=== PATIENT | male | born 1935 | race Caucasian/White ===

== ENCOUNTER 2020-01-11 14:28 | Emergency (ER) | payer MEDICARE, OTHER ==
--- NOTE | 2020-01-11 15:30 | ER Document Report ---
ED General - General Chief Complaint: Passed Out Prior to Arrival Stated Complaint: DIZZY/SYNCOPE Time Seen by Provider: 01/11/20 15:30 Primary Care Provider: EDDIE KIRBY MD [Primary Care Provider] - Follow up as needed - [facility] Notes: 84-year-old male presents after a syncopal event home. 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 He states that he went into the house to fix lunch, he states that he came back out to the garage to let them know that the pizza was ready, passed out and the next thing he knew EMS was at his house. Patient states that he only had a pop tart for breakfast around 11 AM, he took a few bites of the pizza but did not eat a whole slice. He states that he thinks he just got worn out while supervising the garage door repair, he states "I'm pretty good now". Patient's daughter is at bedside, she received a call from her brother/patient's son. She states that she was told "dad was having an episode". She reports that he has had episodes in the past where his blood sugar goes low secondary to not eating, he will become "out of it", they feed him and his symptoms improve. She also states she was told that patient was bent over, grabbing his abdomen and gagging during this episode. Per nursing report, patient was 84/50 on EMS arrival, he received 750cc normal saline and was witnessed to have an episode of coffee-ground emesis. Patient denies known history of ulcers, he has never had an endoscopy, it is been probably 10 years since his last colonoscopy. He takes a thyroid medication and vitamins for anemia. He is not on any blood thinners, he denies use of NSAIDs, denies alcohol use, denies use of aspirin/BC powder. He has had abdominal surgery, though he is unsure what happened. He states that his stools are typically dark and this is normal for him, he has never seen any blood in his stool. - Related Data Allergies/Adverse Reactions: Penicillins Allergy (Verified 01/11/20 14:55) Past Medical History - General Information source: Patient, Relative - Social History Smoking Status: Former Smoker Family History: Reviewed & Not Pertinent - Past Medical History Cardiac Medical History: Denies: Hx Heart Attack, Hx Hypertension Pulmonary Medical History: Denies: Hx Asthma Neurological Medical History: Denies: Hx Cerebrovascular Accident, Hx Seizures GI Medical History: Denies: Hx Hepatitis, Hx Hiatal Hernia, Hx Ulcer Infectious Medical History: Denies: Hx Hepatitis Past Surgical History: Denies: Hx Open Heart Surgery, Hx Pacemaker Review of Systems - Review of Systems Constitutional: denies: Fever EENT: No symptoms reported Cardiovascular: denies: Chest pain Respiratory: denies: Short of breath Gastrointestinal: Vomiting. denies: Abdominal pain Genitourinary: No symptoms reported Male Genitourinary: No symptoms reported Musculoskeletal: No symptoms reported Skin: No symptoms reported Hematologic/Lymphatic: No symptoms reported Neurological/Psychological: No symptoms reported Physical Exam - Vital signs Vitals: Resp BP Pulse Ox 20 161/103 H 93 01/11/20 14:35 01/11/20 14:35 01/11/20 14:35 - General General appearance: Appears well, Alert In distress: None - HEENT Head: Normocephalic, Atraumatic Eyes: No: Scleral icterus Extraocular movements intact: Yes Pupils: PERRL Mucous membranes: Moist Notes: Dried brown emesis on brown, positive Hemoccult - Respiratory Breath sounds: Normal - Cardiovascular Rhythm: Regular Heart sounds: Normal auscultation Normal capillary refill: Yes - Abdominal Distension: No distension Bowel sounds: Normal Tenderness: Nontender Notes: Midline surgical scar, well-healed and old appearing - Rectal Stool: Heme positive - Faintly positive brown stool. No: Black, Bloody - Extremities General upper extremity: Normal ROM General lower extremity: Normal ROM. No: Edema - Neurological Neuro grossly intact: Yes Cognition: Normal Orientation: AAOx4 - Psychological Associated symptoms: Normal affect - Skin Skin Temperature: Warm Course - Re-evaluation Re-evalutation: 84-year-old male presents via EMS after syncopal event at home. Initially found to be hypotensive with EMS, received a fluid bolus, current blood pressure 150/90, not tachycardic. On exam he is well-appearing, hemodynamically stable, abdomen is soft, lungs are clear, heart RRR, normal cap refill. He did have dried emesis on his brown, this was Hemoccult positive. His stool was checked, very faintly Hemoccult positive on periphery of card, brown stool. Based on this report of coffee-ground emesis, I am concerned that patient might be experiencing UGIB, no known history of ulcers, does not take any anticoagulant/antiplatelet medications, will trend hemoglobin and give dose of Protonix. He has obviously had an ex lap given his midline surgical scar, his abdomen has no focal tenderness, however will obtain CT abdomen to evaluate for early obstructive process or any mass that could be attributing to his symptoms. Does not currently voice any cardiopulmonary complaints. 01/11/20 18:38 Repeat hemoglobin without significant drop, 11.8 to 11.4 01/11/20 19:33 CT abdomen report available. Per radiology, no evidence of bowel obstruction. There is some thickening of the ascending colon which may be due to underdistention or colitis. Does have diverticulosis. Additionally has 1.8 cm hypodense lesion in the right hepatic lobe with recommendations to have outpatient MRI 01/11/20 19:41 In to update patient and daughter on all results and relatively reassuring work- up. Patient has remained hemodynamically stable, actually hypertensive on the hypertensive side. He states since he has been in the emergency department he has had no complaints whatsoever. I offered patient admission for trending of hemoglobins. He declined admission, stating he would like to go home. His daughter at bedside is comfortable with him going home as well. I discussed with him need to have very close follow-up with his primary care doctor and receive referral to GI, discuss starting daily acid suppressive medication. Patient is alert and oriented and has capacity to make decisions. Additionally daughter at bedside says they are "very in tune with his health" and will come back to the emergency department for any concerning symptoms or if episode of vomiting happens again. Patient was given strict return precautions which he and his daughter verbalized understanding. Stable at time of discharge. - Vital Signs Vital signs: Temp Pulse Resp BP Pulse Ox 97.6 F 13 178/95 H 100 01/11/20 15:05 01/11/20 16:31 01/11/20 16:31 01/11/20 16:31 - Laboratory Result Diagrams: 01/11/20 18:07 01/11/20 14:44 Laboratory results interpreted by me: 01/11/20 01/11/20 01/11/20 14:44 14:44 18:07 Hgb 11.8 L 11.4 L Hct 36.2 L 33.6 L MCV 78 L 76 L MCH 25.4 L 25.9 L RDW 19.1 H 18.4 H Seg Neutrophils % 79.6 H Sodium 133.7 L Chloride 97 L Glucose 143 H - Diagnostic Test Radiology reviewed: Image reviewed, Reports reviewed - EKG Interpretation by Me Additional EKG results interpreted by me: EKG as interpreted by me. There appears to be a sinus rhythm, I do appreciate P waves but there is a poor baseline in multiple leads, rate 79. Narrow QRS, QTC within normal limits. There is a PVC. No gross ST segment elevation or depression. Discharge - Discharge Clinical Impression: Vomiting Qualifiers: Vomiting type: unspecified Vomiting Intractability: non-intractable Nausea presence: without nausea Qualified Code(s): R11.11 - Vomiting without nausea Disposition: HOME, SELF-CARE Additional Instructions: Please begin daily use of acid reducing medication, have provided a prescription for Protonix however you may start with [id number] medications such as Nexium or Prilosec. Please return to the emergency department immediately for any concerning or worsening symptoms. Please call your primary care doctor on Monday to discuss follow-up and referral to GI, additionally discuss outpatient MRI for the small liver nodule that was seen on CT today. Prescriptions: Pantoprazole Sodium [Protonix [address] Tablet] 20 mg PO DAILY #30 tablet. Referrals: EDDIE KIRBY MD [Primary Care Provider] - Follow up as needed FLACA MAZA MD [ACTIVE STAFF] - Follow up as needed
[2020-01-11 15:46] LABS: ABSOLUTE EOSINOPHILS # (AUTO) 0.1 10^3/uL (0.0-0.6); ABSOLUTE LYMPHOCYTES (AUTO) 2.2 10^3/uL (0.5-4.7); ABSOLUTE MONOCYTES (AUTO) 0.5 10^3/uL (0.1-1.4); ABSOLUTE NEUT (AUTO) 3.8 10^3/uL (1.7-8.2); BASOPHILS % (AUTO) 0.5 % (0-2); HEMATOCRIT 36.2 % (37.9-51.0); HEMOGLOBIN 11.8 g/dL (13.5-17.0); LYMPHOCYTES % (AUTO) 33.5 % (13-45); MEAN CORPUSCULAR HEMOGLOBIN 25.4 pg (27.0-33.4); MEAN CORPUSCULAR HGB CONC 32.7 g/dL (32.0-36.0); MEAN CORPUSCULAR VOLUME 78 fl (80-97); MONOCYTES % (AUTO) 7.1 % (3-13); PLATELET COUNT 232 10^3/uL (150-450); RED BLOOD COUNT 4.66 10^6/uL (4.35-5.55); RED CELL DISTRIBUTION WIDTH 19.1 % (11.5-14.0); SEGMENTED NEUTROPHILS % (AUTO) 56.9 % (42-78); TOTAL CELLS COUNTED % (AUTO) 100 %; WHITE BLOOD COUNT 6.6 10^3/uL (4.0-10.5)
[2020-01-11 15:47] LABS: ALBUMIN 3.6 g/dL (3.5-5.0); ALKALINE PHOSPHATASE 95 U/L (38-126); ANION GAP 11 (5-19); ASPARTATE AMINO TRANSFERASE 23 U/L (17-59); BILIRUBIN,DIRECT 0.2 mg/dL (0.0-0.4); BILIRUBIN,TOTAL 0.7 mg/dL (0.2-1.3); BLOOD UREA NITROGEN 10 mg/dL (7-20); CALCIUM 9.2 mg/dL (8.4-10.2); CARBON DIOXIDE 26 mmol/L (22-30); CHLORIDE 97 mmol/L (98-107); GLUCOSE 143 mg/dL (75-110); POTASSIUM 4.1 mmol/L (3.6-5.0); TOTAL PROTEIN 6.5 g/dL (6.3-8.2)
[2020-01-11] MEDS ORDERED: PANTOPRAZOLE SODIUM 40 MG VIAL IV ONE (15:50)
[2020-01-11 17:37] LABS: APPEARANCE,URINE CLEAR; BILIRUBIN,URINE NEGATIVE (NEGATIVE); COLOR,URINE YELLOW; GLUCOSE, URINE NEGATIVE (NEGATIVE); KETONES,URINE NEGATIVE (NEGATIVE); LEUKOCYTE ESTERASE,URINE NEGATIVE (NEGATIVE); NITRITE,URINE NEGATIVE (NEGATIVE); PROTEIN,URINE NEGATIVE (NEGATIVE); URINE SPECIFIC GRAVITY 1.008; UROBILINOGEN,URINE NEGATIVE mg/dL (<2.0)
[2020-01-11 18:30] LABS: ABSOLUTE LYMPHOCYTES (AUTO) 1.2 10^3/uL (0.5-4.7); ABSOLUTE MONOCYTES (AUTO) 0.5 10^3/uL (0.1-1.4); ABSOLUTE NEUT (AUTO) 6.7 10^3/uL (1.7-8.2); BASOPHILS % (AUTO) 0.3 % (0-2); EOSINOPHILS % (AUTO) 0.3 % (0-6); HEMATOCRIT 33.6 % (37.9-51.0); HEMOGLOBIN 11.4 g/dL (13.5-17.0); LYMPHOCYTES % (AUTO) 13.8 % (13-45); MEAN CORPUSCULAR HEMOGLOBIN 25.9 pg (27.0-33.4); MEAN CORPUSCULAR HGB CONC 33.9 g/dL (32.0-36.0); MEAN CORPUSCULAR VOLUME 76 fl (80-97); PLATELET COUNT 219 10^3/uL (150-450); RED BLOOD COUNT 4.41 10^6/uL (4.35-5.55); RED CELL DISTRIBUTION WIDTH 18.4 % (11.5-14.0); SEGMENTED NEUTROPHILS % (AUTO) 79.6 % (42-78); TOTAL CELLS COUNTED % (AUTO) 100 %; WHITE BLOOD COUNT 8.4 10^3/uL (4.0-10.5)
--- NOTE | 2020-01-11 19:11 | RADIOLOGY REPORT (SQ) ---
EXAM DESCRIPTION: CT ABD/PELVIS WITH IV ORAL IMAGES COMPLETED DATE/TIME: 01/11/2020 6:42 pm REASON FOR STUDY: vomiting, hx abd surg, eval SBO COMPARISON: None. TECHNIQUE: CT scan of the abdomen and pelvis performed using helical scanning technique with dynamic intravenous contrast injection. Oral contrast was also administered. Images reviewed with lung, sof t tissue, and bone windows. Reconstructed coronal and sagittal MPR images reviewed. Delayed images fo r evaluation of the urinary system also acquired. All images stored on PACS. All CT scanners at this facility use dose modulation, iterative reconstruction, and/or weight based d osing when appropriate to reduce radiation dose to as low as reasonably achievable (ALARA). [facility]: Dose Right [facility]: CareDose [facility]: Dose Right [facility]: Teradose 4D [facility]: Tricentis CONTRAST TYPE AND DOSE: contrast/concentration: Isovue 350.00 mmol/ml; Total Contrast Delivered: 94. 0 ml; Total Saline Delivered: 71.0 ml RENAL FUNCTION: Creatinine 1.09 RADIATION DOSE: CT Rad equipment meets quality standard of care and radiation dose reduction techniq ues were employed. CTDIvol: 11.4 - 15.1 mGy. DLP: 1443 mGy-cm.. LIMITATIONS: Motion artifact. FINDINGS: LOWER CHEST: There is motion artifact. There is mild bibasilar atelectasis. No pleural e ffusion. Coronary artery calcifications/stents are noted. No pericardial effusion. There is a smal l hiatal hernia. LIVER: There is a 1.8 cm hypodense lesion at the right hepatic lobe, segment 7, measuring in attenuat ion more than simple cyst. No dilated ducts. SPLEEN: No focal lesions. PANCREAS: No significant calcifications. No adjacent inflammation or peripancreatic fluid collections . Pancreatic duct not dilated. GALLBLADDER: No identified stones by CT criteria. No inflammatory changes to suggest cholecystitis. ADRENAL GLANDS: No significant masses or asymmetry. RIGHT KIDNEY AND URETER: No solid masses. No significant calcifications. No hydronephrosis or hyd roureter. LEFT KIDNEY AND URETER: No solid masses. No significant calcifications. No hydronephrosis or hydr oureter. AORTA AND VESSELS: Atherosclerotic calcifications at the tortuous abdominal aorta and its branches. No evidence for acute dissection. RETROPERITONEUM: No retroperitoneal adenopathy, hemorrhage or masses. BOWEL AND PERITONEAL CAVITY: The stomach is decompressed. No dilated bowel loops to suggest obstruct ion. The oral contrast has reached the cecum. No free fluid or free air. There is colonic divertic ulosis with no CT evidence for acute diverticulitis. The ascending colon is decompressed with diffus e wall thickening. APPENDIX: Normal. PELVIS: The urinary bladder is distended. Small diverticula are noted at the right base of the urina ry bladder. No free fluid. 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 ABDOMINAL WALL: There is a wide neck moderate-size fat containing umbilical hernia, with the hernia n belkis measuring 4.0 cm. BONES: There is diffuse osteopenia. Multilevel degenerative changes at the spine. There is a 7 mm s clerotic lesion at the posterior left 9th rib. There is an 8 mm sclerotic lesion at the lateral left 7th rib. IMPRESSION: 1. No evidence for bowel obstruction. Diffuse wall thickening at the ascending colon, m ay be secondary to underdistention or colitis. 2. Colonic diverticulosis. 3. Urinary bladder diverticula. 4. 1.8 cm hypodense lesion at the right hepatic lobe, indeterminate. Nonemergent contrast-enhanced M RI recommended for further characterisation. 5. Moderate size fat-containing umbilical hernia. 6. Small hiatal hernia. 7. Subcentimeter sclerotic lesions at the left ribs, indeterminate. TECHNICAL DOCUMENTATION: JOB ID: [id number] MO- Quality ID # [id number]: Final reports with documentation of one or more dose reduction techniques (e.g., Au tomated exposure control, adjustment of the mA and/or kV according to patient size, use of iterative reconstruction technique) 2010 [employer]- All Rights Reserved Reading location - IP/workstation name: [email or web address]
[2020-01-11 19:47] VITALS: BP 156/88
--- NOTE | 2020-01-12 18:14 | EKG REPORT ---
SEVERITY:- ABNORMAL ECG - SINUS RHYTHM, FIRST DEGREE AV BLOCK LEFT VENTRICULAR HYPERTROPHY INFERIOR INFARCT, AGE INDETERMINATE : Confirmed by: Reinaldo Lopez MD 12-Jan-2020 18:14:13
== END 2020-01-11 19:58 | disposition home or self-care (01) ==
LOC: ER 14:28
DX: R11.11 Vomiting without nausea (principal); R55 Syncope and collapse; R42 Dizziness and giddiness; K44.9 Diaphragmatic hernia without obstruction or gangrene; K57.30 Diverticulosis of large intestine without perforation or abscess without bleeding; Z88.0 Allergy status to penicillin
CPT/HCPCS: 93005; 99285; 96374; 86900; 86901; 36415; 86850; 85025; 82271; 80053; 81001; 84484; 74177; 93010; C9113